=== PATIENT | female | born 1970 | race African-American/Black ===

== ENCOUNTER 2017-07-05 16:36 | Outpatient (CLI) | END 2017-07-05 16:37 | disposition home or self-care (01) | LOC: LAB 16:36 | PROVIDERS: ATTEND General Practice | DX: J02.9 Acute pharyngitis, unspecified (principal) | CPT/HCPCS: 87651; 87880 ==

== ENCOUNTER 2018-05-25 12:22 | Outpatient (CLI) | END 2018-05-25 12:23 | disposition home or self-care (01) | LOC: RHC-LAB 12:22 | PROVIDERS: ATTEND General Practice | DX: G50.0 Trigeminal neuralgia (principal); J30.2 Other seasonal allergic rhinitis; M50.90 Cervical disc disorder, unspecified, unspecified cervical region; R53.82 Chronic fatigue, unspecified | CPT/HCPCS: 36415; 80053; 81001; 84443; 85025 ==